=== PATIENT | male | born 1965 | race Caucasian/White ===

== ENCOUNTER 2017-07-06 13:06 | Observation (INO) | payer OTHER ==
[~2017-07-06] VITALS: Ht 188 cm; Wt 109.5 kg
[2017-07-06 14:34] LABS: CALCIUM 8.6 mg/dL (8.5-10.1); CARBON DIOXIDE 25.7 mmol/L (21-32); CHLORIDE SERUM 100 mmol/L (98-107); CREATININE SERUM 1.3 mg/dL (0.7-1.3); GFR1 > 60 mL/min; GLUCOSE SERUM 95 mg/dL (74-106); POTASSIUM SERUM 3.3 mmol/L (3.5-5.1); SODIUM SERUM 136 mmol/L (136-145)
[2017-07-06 14:36] LABS: BASOPHIL % 0.3 % (0-2); PLATELET COUNT 326 x10^3mcL (130-400)
[2017-07-06 14:39] LABS: ALBUMIN 3.3 g/dL (3.4-5.0); ALKALINE PHOSPHATASE 47 U/L (46-116); ALT/SGPT 15 U/L (16-63); AST/SGOT 13 U/L (15-37); BILIRUBIN TOTAL 0.8 mg/dL (0.20-1.00); TOTAL PROTEIN, SERUM 7.7 g/dL (6.4-8.2)
[2017-07-06 16:02] VITALS: BP 110/69
[2017-07-06 16:16] VITALS: Ht 188 cm; Wt 109.5 kg
[2017-07-06] MEDS ORDERED: METFORMIN HCL500 MG PO (16:28)
[2017-07-06 17:59] VITALS: BP 110/69
[2017-07-06 21:46] VITALS: BP 112/55
[2017-07-07 05:37] LABS: BASOPHIL % 0.4 % (0-2); PLATELET COUNT 330 x10^3mcL (130-400); RED CELL DISTRIBUTION WIDTH 12.9 % (11.5-14.5)
[2017-07-07 05:57] LABS: ALBUMIN 3.2 g/dL (3.4-5.0); ALKALINE PHOSPHATASE 45 U/L (46-116); ALT/SGPT 22 U/L (16-63); AST/SGOT 16 U/L (15-37); BILIRUBIN TOTAL 0.72 mg/dL (0.20-1.00); CALCIUM 8.6 mg/dL (8.5-10.1); CARBON DIOXIDE 26.3 mmol/L (21-32); CHLORIDE SERUM 103 mmol/L (98-107); CHOLESTEROL 107 mg/dL (<200); CREATININE SERUM 1.2 mg/dL (0.7-1.3); GFR1 > 60 mL/min; GLUCOSE SERUM 116 mg/dL (74-106); HDL CHOLESTEROL 36 mg/dL (40-60); POTASSIUM SERUM 3.6 mmol/L (3.5-5.1); SODIUM SERUM 139 mmol/L (136-145); TOTAL PROTEIN, SERUM 7.7 g/dL (6.4-8.2); TRIGLYCERIDES 62 mg/dL (<150)
[2017-07-07 06:09] VITALS: BP 118/70
[2017-07-07 11:35] VITALS: BP 131/89
[2017-07-07 13:09] VITALS: BP 120/59
[2017-07-07] MEDS ORDERED: ZES5 PO (14:19)
[2017-07-07] MEDS ORDERED: LIPI20 PO (14:19)
[2017-07-07 14:33] VITALS: BP 120/59
== END 2017-07-07 16:34 | disposition home or self-care (01) | DRG 243 ==
LOC: ED 13:06 → DU 15:03
PROVIDERS: Emergency Medicine; ADMIT Internal Medicine Pulmonary Disease
DX: K21.9 Gastro-esophageal reflux disease without esophagitis (principal); I10 Essential (primary) hypertension; E11.9 Type 2 diabetes mellitus without complications; E78.5 Hyperlipidemia, unspecified; F17.210 Nicotine dependence, cigarettes, uncomplicated; Z79.84 Long term (current) use of oral hypoglycemic drugs
CPT/HCPCS: 82962; 83880; A9500; G0378; J2785; J7030; Q9967

== ENCOUNTER 2018-09-06 07:18 | Inpatient (IN) | payer OTHER ==
[~2018-09-06] VITALS: Ht 188 cm; Wt 117.0 kg
[~2018-09-06 07:18] MED LIST: LIPI20 PO; METFORMIN HCL500 MG PO; ZES5 PO
[2018-09-06 07:26] VITALS: Ht 188 cm; Wt 117.0 kg
[2018-09-06] MEDS ORDERED: PROPRANOLOL HCL10 MG (07:42)
[2018-09-06 08:08] LABS: BASOPHIL % 0.3 % (0-2); PLATELET COUNT 258 x10^3mcL (130-400); RED CELL DISTRIBUTION WIDTH 12.8 % (11.5-14.5)
[2018-09-06 08:17] LABS: CALCIUM 9.5 mg/dL (8.5-10.1); CARBON DIOXIDE 28.2 mmol/L (21-32); CHLORIDE SERUM 101 mmol/L (98-107); CREATININE SERUM 1.3 mg/dL (0.7-1.3); GFR1 > 60 mL/min; GLUCOSE SERUM 137 mg/dL (74-106); SODIUM SERUM 139 mmol/L (136-145)
[2018-09-06 08:29] LABS: ALBUMIN 3.9 g/dL (3.4-5.0); ALKALINE PHOSPHATASE 42 U/L (46-116); ALT/SGPT 48 U/L (16-63); AMYLASE 62 U/L (25-115); AST/SGOT 28 U/L (15-37); BILIRUBIN TOTAL 0.67 mg/dL (0.20-1.00); CHOLESTEROL 150 mg/dL (<200); HDL CHOLESTEROL 53 mg/dL (40-60); LIPASE 276 IU/L (73-393); T4(THYROXINE) 7.2 ug/dL (4.7-13.3); TOTAL PROTEIN, SERUM 7.7 g/dL (6.4-8.2)
[2018-09-06 08:41] LABS: microscopic required? NO
[2018-09-06 08:54] LABS: urine erythrocyte NEGATIVE (NEGATIVE)
[2018-09-06 09:58] LABS: AMPHETAMINE QUAL UR NONE DETECTED (See below)
[2018-09-06 14:40] VITALS: BP 114/66
[2018-09-06 17:10] VITALS: BP 114/66
== END 2018-09-06 17:50 | disposition home or self-care (01) | DRG 203 ==
LOC: ED 07:18 → DU 10:54
PROVIDERS: Emergency Medicine; ADMIT Internal Medicine
DX: R07.89 Other chest pain (principal); E11.9 Type 2 diabetes mellitus without complications; I10 Essential (primary) hypertension; E66.9 Obesity, unspecified; F12.90 Cannabis use, unspecified, uncomplicated; F17.200 Nicotine dependence, unspecified, uncomplicated; Z90.49 Acquired absence of other specified parts of digestive tract; Z90.89 Acquired absence of other organs; Z82.49 Family history of ischemic heart disease and other diseases of the circulatory system; Z68.33 Body mass index [BMI] 33.0-33.9, adult
CPT/HCPCS: 82962; 83880; G0480